=== PATIENT | male | born 1955 ===

== ENCOUNTER 2016-04-05 16:26 | Emergency (ER) | payer SELFPAY ==
[2016-04-05 17:54] LABS: Urine Drugs of Abuse Note Disclamer
[2016-04-05 18:20] LABS: Bilirubin,Urine NEG (Negative); Blood,Urine MOD (Negative); Ketones,Urine 20 mg/dL (Negative); Leukocyte Esterase,Urine NEG (Negative); Mucus,Urine 2+ /HPF; Nitrite,Urine NEG (Negative); Protein,Urine <15 mg/dL mg/dL (Negative); Urobilinogen,Urine < 2.0 mg/dL (<2.0); WBC,Urine < 1.0 /HPF (0.0-6.0)
[2016-04-05 19:50] LABS: Basophils % (Auto) 0.5 % (0.0-1.8); Eosinophils % (Auto) 0.5 % (0.0-4.3); Hematocrit 50.7 % (35.5-45.6); Hemoglobin 16.7 gm/dl (11.8-15.2); Mean Corpuscular HGB Conc 33 % (32-34); Mean Corpuscular Hemoglobin 30 pg (28-32); Mean Corpuscular Volume 90 fl (84-94); Platelet Count 213 K/mm3 (140-440); Red Blood Count 5.66 M/mm3 (3.65-5.03); Red Cell Distribution Width 13.5 % (13.2-15.2); White Blood Count 14.2 K/mm3 (4.5-11.0)
[2016-04-05 20:12] LABS: BUN/Creatinine Ratio 10.76; Calcium 9.2 mg/dL (8.4-10.2); Chloride 100.3 mmol/L (98-107); Potassium 4.5 mmol/L (3.6-5.0)
--- NOTE | 2016-04-06 01:10 | Emergency Department Report ---
ED Psych HPI - General Chief Complaint: Psych Stated Complaint: SUICIDAL Time Seen by Provider: 04/06/16 01:04 Source: patient, family, RN notes reviewed Mode of arrival: Ambulatory Limitations: No Limitations - History of Present Illness Initial Comments: This is a 61-year-old male. He is previously unknown to me. Has a history of depression. Presents to the ER with suicidality. He said he wants to hurt himself. Does not have hallucinations. Denies overdose. Reports numerous stressors, which make him feel depressed. He is not homicidal. He currently does not have access to guns or firearms. Mild headache. No chest pain or shortness of breath. No abdominal pain. Reports that he is sore from walking today. MD Complaint: suicidal ideation, feels depressed -: Gradual Associated Psychiatric Symptoms: depression, suicidal ideation History of same: Yes Quality: constant Improves With: none Worsens With: none Context: significant life stressor If Self Harm: admits thoughts of - Related Data Allergies Allergy/AdvReac Type Severity Reaction Status Date / Time No Known Allergies Allergy Unverified 04/05/16 16:41 ED Review of Systems ROS: Stated complaint: SUICIDAL Other details as noted in HPI Constitutional: malaise, weakness Eyes: denies: vision change ENT: denies: epistaxis Respiratory: denies: cough Cardiovascular: denies: chest pain Gastrointestinal: denies: abdominal pain Genitourinary: denies: dysuria Musculoskeletal: as per HPI Skin: denies: lesions Neurological: denies: weakness Psychiatric: depression, suicidal thoughts ED Past Medical Hx - Past Medical History Hx Psychiatric Treatment: Yes (Major depressive disorder, Anxiety) - Surgical History Past Surgical History?: Yes Hx Appendectomy: Yes - Social History Smoking Status: Former Smoker Substance Use Type: None ED Physical Exam - General Limitations: No Limitations General appearance: alert, in no apparent distress - Head Head exam: Present: atraumatic, normocephalic - Eye Eye exam: Present: normal appearance, PERRL, EOMI. Absent: nystagmus - ENT ENT exam: Present: normal exam, normal orophraynx, mucous membranes moist, normal external ear exam - Neck Neck exam: Present: normal inspection, full ROM. Absent: tenderness, meningismus - Respiratory Respiratory exam: Present: normal lung sounds bilaterally. Absent: respiratory distress, wheezes, rales, rhonchi, stridor, chest wall tenderness - Cardiovascular Cardiovascular Exam: Present: regular rate, normal rhythm, normal heart sounds. Absent: bradycardia, tachycardia, irregular rhythm, systolic murmur, diastolic murmur, rubs, gallop - GI/Abdominal GI/Abdominal exam: Present: soft, normal bowel sounds. Absent: distended, tenderness, guarding, rebound, rigid, pulsatile mass - Rectal Rectal exam: Present: deferred - Extremities Exam Extremities exam: Present: normal inspection, full ROM, normal capillary refill. Absent: tenderness, pedal edema, joint swelling, calf tenderness - Back Exam Back exam: Present: normal inspection, full ROM. Absent: tenderness, CVA tenderness (R), CVA tenderness (L), muscle spasm, paraspinal tenderness, vertebral tenderness - Neurological Exam Neurological exam: Present: alert, oriented X3, normal gait, other (Extraocular movements intact. Tongue midline. No facial droop. Facial sensation intact to light touch in the V1, V2, V3 distribution bilaterally. 5 and 5 strength in 4 extremities.. Sensation is intact to light touch in 4 extremities.). Absent : motor sensory deficit - Psychiatric Psychiatric exam: Present: depressed, flat affect, suicidal ideation - Skin Skin exam: Present: warm, dry, intact, normal color. Absent: rash ED Course Vital Signs 04/05/16 04/06/16 16:42 00:40 Temperature 97.4 F L 97.6 F Pulse Rate 90 71 Respiratory 18 16 Rate Blood Pressure 158/118 Blood Pressure 158/102 [Right] O2 Sat by Pulse 95 96 Oximetry - Reevaluation(s) Reevaluation #1: 04/06/16 02:04 Differential diagnosis: Mood disorder, suicidality, medical clearance for psychiatric placement. Assessment and plan: 61-year-old male with suicidality, here for medical clearance for psychiatric placement. A 1013 form is filled out by me immediately upon evaluating the patient. He walks with a steady gait, has a GCS of 15, with an NIH score of 0. His physical examination is unremarkable, his compartments are soft, clinically doubt rhabdomyolysis at this time. At this point in time, I see no immediate medical contraindication to psychiatric admission/evaluation/placement. The crisis workers formed. ED Medical Decision Making - Lab Data Result diagrams: 04/05/16 19:19 04/05/16 19:19 Vital Signs 04/05/16 04/06/16 16:42 00:40 Temperature 97.4 F L 97.6 F Pulse Rate 90 71 Respiratory 18 16 Rate Blood Pressure 158/118 Blood Pressure 158/102 [Right] O2 Sat by Pulse 95 96 Oximetry Labs 04/05/16 04/05/16 04/05/16 17:06 17:06 19:19 WBC RBC Hgb Hct MCV MCH MCHC RDW Plt Count Lymph % (Auto) [place] % (Auto) Eos % (Auto) Baso % (Auto) Lymph # [place] # Eos # Baso # Seg Neutrophils % Seg Neutrophils # Sodium 141 Potassium 4.5 Chloride 100.3 Carbon Dioxide 23 Anion Gap 22 BUN 14 Creatinine 1.3 Estimated GFR 56 BUN/Creatinine Ratio 10.76 Glucose 96 Calcium 9.2 Urine Color Yellow Urine Turbidity Clear Urine pH 5.0 Ur Specific [place] 1.028 Urine Protein <15 mg/dl Urine Glucose (UA) Neg Urine Ketones 20 Urine Blood Mod Urine Nitrite Neg Urine Bilirubin Neg Urine Urobilinogen < 2.0 Ur Leukocyte Esterase Neg Urine WBC (Auto) < 1.0 Urine RBC (Auto) 3.0 Urine Mucus 2+ Urine Opiates Screen Presumptive negative Urine Methadone Screen Presumptive positive Ur Barbiturates Screen Presumptive negative Ur Phencyclidine Scrn Presumptive negative Ur Amphetamines Screen Presumptive negative U Benzodiazepines Scrn Presumptive negative Urine Cocaine Screen Presumptive negative U Marijuana (THC) Screen Presumptive negative Drugs of Abuse Note Disclamer Plasma/Serum Alcohol 04/05/16 04/05/16 19:19 19:19 WBC 14.2 H RBC 5.66 H Hgb 16.7 H Hct 50.7 H MCV 90 MCH 30 MCHC 33 RDW 13.5 Plt Count 213 Lymph % (Auto) 22.5 [place] % (Auto) 7.0 Eos % (Auto) 0.5 Baso % (Auto) 0.5 Lymph # 3.2 [place] # 1.0 H Eos # 0.1 Baso # 0.1 Seg Neutrophils % 69.5 Seg Neutrophils # 9.9 H Sodium Potassium Chloride Carbon Dioxide Anion Gap BUN Creatinine Estimated GFR BUN/Creatinine Ratio Glucose Calcium Urine Color Urine Turbidity Urine pH Ur Specific [place] Urine Protein Urine Glucose (UA) Urine Ketones Urine Blood Urine Nitrite Urine Bilirubin Urine Urobilinogen Ur Leukocyte Esterase Urine WBC (Auto) Urine RBC (Auto) Urine Mucus Urine Opiates Screen Urine Methadone Screen Ur Barbiturates Screen Ur Phencyclidine Scrn Ur Amphetamines Screen U Benzodiazepines Scrn Urine Cocaine Screen U Marijuana (THC) Screen Drugs of Abuse Note Plasma/Serum Alcohol < 0.01 Critical care attestation.: If time is entered above; I have spent that time in minutes in the direct care of this critically ill patient, excluding procedure time. ED Disposition Clinical Impression: Mood disorder Disposition: DC/TX PSY HOSP/PSY UNIT Is pt being admited?: No Does the pt Need Aspirin: No Condition: Good Referrals: PRIMARY CARE [Primary Care Provider] - 3-5 Days
[2016-04-06] MEDS ORDERED: MOTRIN PO PRN (02:05)
[2016-04-06] MEDS ORDERED: ATIVAN IM PRN (02:05)
[2016-04-06] MEDS ORDERED: NACL ONE (07:57)
--- NOTE | 2016-04-08 13:39 | Emergency Department Report ---
Blank Doc - Documentation Documentation: Vital signs remain stable. Nurse's notes reviewed and patient without complaints and remains cooperative. Awaiting placement
[2016-04-10 15:12] VITALS: BP 134/89
== END 2016-04-10 15:25 ==
LOC: EEVIPCON 16:26 → ED 16:26
DX: F39 Unspecified mood [affective] disorder (principal); F41.9 Anxiety disorder, unspecified; Z87.891 Personal history of nicotine dependence
CPT/HCPCS: 36415; 80048; 80307; 81001; 82550; 85025; 99285; G0480; 80320